=== PATIENT | female | born 1955 | race Caucasian/White ===

== ENCOUNTER 2023-08-04 07:45 | Outpatient (CLI) | payer OTHER, SELFPAY ==
--- NOTE | ~2023-08-04 | MR_ITS ---
EXAMINATION: MR knee LT wo con DATE: 08/04/2023 08:25 INDICATION: Left knee pain. TECHNIQUE: Magnetic resonance imaging (MRI) of the left knee was performed without intravenous contra st. Sequences included axial PD-weighted FS FSE, coronal PD-weighted FSE and PD-weighted FS FSE, sagi ttal PD-weighted FSE, and sagittal T2-weighted FS FSE. COMPARISON: None. FINDINGS: Medial compartment: Medial meniscus is normal. There is shallow partial-thickness cartilage loss of tibial condyle, worst at the central articular surface. There is shallow partial-thickness cartilage loss of femoral condy le, worst at the posterior articular surface. Osteophytes are noted. Lateral compartment: There is a vertical tear of body of lateral meniscus. There is shallow partial-thickness cartilage lo ss of tibial condyle, worst at the central articular surface. There is cartilage surface irregularity of femoral condyle. Osteophytes are noted. Patellofemoral compartment: There is full-thickness cartilage loss of patellar lateral facet and median ridge with cortical remod eling and moderate subchondral edema-like signal intensity. There is full-thickness cartilage loss of central and lateral trochlea with cortical remodeling and mild subchondral edema-like marrow signal intensity. Osteophytes are noted. Ligaments and tendons: Anterior and posterior cruciate ligaments are normal. There are changes of prior sprain of medial col lateral ligament characterized by increased signal intensity proximally. There are changes of prior s prain of fibular collateral ligament characterized by thickening and increased signal intensity proxi laura. There is mild patellar tendinopathy. Fluid: There is a small knee joint effusion. There is mild prepatellar and superficial infrapatellar bursiti s. IMPRESSION: 1. Severe chondrosis of patellofemoral compartment and mild chondrosis of medial and lateral compartm ents. 2. Tear of lateral meniscus. 3. Small knee joint effusion. Reviewed, dictated and finalized at location E. IMPRESSION: 1. Severe chondrosis of patellofemoral compartment and mild chondrosis of media l and lateral compartments. 2. Tear of lateral meniscus. 3. Small knee joint effusion.
== END 2023-08-04 07:46 ==
LOC: MICIMG 07:46
PROVIDERS: PCP Orthopaedic Surgery; Visit Provider Orthopaedic Surgery
DX: M25.562 Pain in left knee (principal); S83.282A Other tear of lateral meniscus, current injury, left knee, initial encounter; M25.462 Effusion, left knee; M22.2X2 Patellofemoral disorders, left knee
CPT/HCPCS: 73721